=== PATIENT | male | born 1950 | race Caucasian/White ===

== ENCOUNTER 2017-10-26 19:32 | Emergency (ER) | payer MEDICARE ==
[~2017-10-26] VITALS: Ht 205.7 cm; Wt 113.6 kg
[~2017-10-26 19:32] MED LIST: ASPI-621 PO; ATOR20TA9 PO; ATOR80TA PO; CEFD300C37 PO; DIPH25TA65 PO; DOCU100C33 PO; DOXY100C2 PO; FINA5TAB4 PO; IBUP-1223 PO; LEVO100T PO; MAGN400T26 PO; MECL-85 PO; METO-95; METO200T47 PO; METO25TA91 PO; NITR0.4T28 SL; SCOP1PAT11 TD; TAMS0.4C2 PO; TICA90TA PO; VALP250C59 PO
[2017-10-26 21:01] VITALS: BP 130/77
[2017-10-26 21:10] LABS: BASOPHILS # (AUTO) 0.08 x10^3/uL (0-0.1); BASOPHILS % (AUTO) 1 % (0-1); EOSINOPHILS # (AUTO) 0.36 x10^3/uL (0-0.4); EOSINOPHILS % (AUTO) 3 % (1-7); LYMPHOCYTES # (AUTO) 1.79 x10^3/uL (1-3.4); LYMPHOCYTES % (AUTO) 15 % (22-44); MD SCAN; MEAN CORPUSCULAR HEMOGLOBIN 24.5 pg (27.5-34.5); MEAN CORPUSCULAR HGB CONC 30.4 g/dL (33.2-36.2); MEAN CORPUSCULAR VOLUME 80.5 fL (81-97); MONOCYTES # (AUTO) 0.69 x10^3/uL (0.2-0.8); MONOCYTES % (AUTO) 6 % (2-9); NEUTROPHILS # (AUTO) 8.91 x10^3/uL (1.8-6.8); NEUTROPHILS % (AUTO) 75 % (42-75); PLATELET COUNT 671 x10^3/uL (130-400); RED BLOOD COUNT 7.38 x10^6/uL (4.38-5.82); RED CELL DISTRIBUTION WIDTH 17.6 % (9.4-14.8)
== END 2017-10-26 21:29 | disposition home or self-care (01) ==
LOC: ED 20:39
DX: I10 Essential (primary) hypertension (principal); I25.2 Old myocardial infarction; Z86.73 Personal history of transient ischemic attack (TIA), and cerebral infarction without residual deficits; K21.9 Gastro-esophageal reflux disease without esophagitis
CPT/HCPCS: 36415; 80047; 84484; 85025; 93005; 99285

== ENCOUNTER 2018-09-22 22:40 | Inpatient (IN) | payer MEDICARE ==
[~2018-09-22] VITALS: Ht 205.7 cm; Wt 113.9 kg
[~2018-09-22 22:40] MED LIST changes: -ASPI-621 PO; +ASPI81TA45 PO; +ATOR20TA37 PO; -ATOR20TA9 PO
[2018-09-22] MEDS ORDERED: SODIUM CHLORIDE FLUSH 10ML SYR IVF ONE (23:30)
[2018-09-23 00:10] LABS: ALANINE AMINOTRANSFERASE 15 U/L (12-78); ALBUMIN 3.7 g/dL (3.4-5.0); ANION GAP 9 mmol/L (5-15); CALCIUM 8.6 mg/dL (8.5-10.1); CHLORIDE 99 mmol/L (98-107)
[2018-09-23 00:14] LABS: ALKALINE PHOSPHATASE 59 U/L (45-117)
--- NOTE | 2018-09-23 00:18 | NUR ---
UA OBTAINED AND TUBED TO LAB. POC DISCUSSED. PT AND SPOUSE DENY FURTHER NEEDS AT THIS TIME.
[2018-09-23 00:26] LABS: MEAN CORPUSCULAR HEMOGLOBIN 25.2 pg (27.5-34.5); MEAN CORPUSCULAR HGB CONC 31.2 g/dL (33.2-36.2); MEAN CORPUSCULAR VOLUME 80.7 fL (81-97); MEAN PLATELET VOLUME 7.4 fL (7.4-10.4); PLATELET COUNT 669 x10^3/uL (130-400); RED BLOOD COUNT 7.13 x10^6/uL (4.38-5.82); RED CELL DISTRIBUTION WIDTH 16.1 % (9.4-14.8)
[2018-09-23] MEDS ORDERED: ASPIRIN 81 MG TABLET CHEW ONE (00:51)
[2018-09-23] MEDS ORDERED: FUROSEMIDE 20 MG/2 ML ONE (00:51)
--- NOTE | 2018-09-23 00:55 | NUR ---
PT MEDICATED PER JUL. PT TO RAD NOW
[2018-09-23] MEDS ORDERED: ASPIRIN 81 MG TABLET CHEW PO ONE (01:00)
[2018-09-23] MEDS ORDERED: FUROSEMIDE 20 MG/2 ML IV ONE (01:00)
[2018-09-23 01:05] LABS: MD YES
--- NOTE | 2018-09-23 01:07 | NUR ---
AWAITING HEPARIN VERIFICATION FROM PHARM PRIOR TO STARTING HEPARIN
[2018-09-23 01:09] LABS: BAND#(MANUAL) 0.16 x10^3/uL; BANDS%(MANUAL) 1 % (0-7); EOS#(MANUAL) 0.31 x10^3/uL (0.0-0.4); EOS% (MANUAL) 2 % (1-7); LYMPHS% (MANUAL) 7 % (22-44); MONOS#(MANUAL) 1.88 x10^3/uL (0.3-2.7); MONOS% (MANUAL) 12 % (2-9); REACTIVE LYMPHS # (MANUAL) 0.31 x10^3/uL (0-0); REACTIVE LYMPHS % (MANUAL) 2 % (0-0); SEG#(MANUAL) 11.93 x10^3/uL (1.8-6.8); SEGS% (MANUAL) 76 % (42-75)
[2018-09-23 01:10] LABS: POLYCHROMASIA 1+
[2018-09-23] MEDS ORDERED: HEPARIN 5,000 UNITS/ML, 1ML ONE (01:10)
[2018-09-23] MEDS ORDERED: HEPARIN 25,000 UNITS/500ML PMX 500 ML ONE (01:10)
[2018-09-23 01:11] LABS: <PLATELET ESTIMATE> INCREASED; <PLT MORPHOLOGY> NORMAL PLT MORPH; OVALOCYTES 1+; TOXIC GRAN 1+
[2018-09-23 01:18] LABS: MICROSCOPIC AUTO
[2018-09-23 01:20] LABS: INTERNATIONAL NORMALIZED RATIO 1.08 (0.93-1.1)
[2018-09-23 01:21] LABS: PROTHROMBIN TIME 11.3 Seconds (9.6-11.5)
[2018-09-23 01:24] LABS: CULTURE INDICATED? YES
[2018-09-23] MEDS ORDERED: HEPARIN 25,000 UNITS/500ML PMX 500 ML IV PRN ×2 (01:30→07:30)
[2018-09-23] MEDS ORDERED: CEFDINIR 300 MG CAPSULE PO SCH (01:30)
[2018-09-23] MEDS ORDERED: DOCUSATE 100 MG CAPSULE PO SCH (01:30)
[2018-09-23] MEDS ORDERED: HEPARIN 5,000 UNITS/ML, 1ML IV PRN ×2 (01:30→07:30)
[2018-09-23] MEDS ORDERED: HEPARIN 5,000 UNITS/ML, 1ML IV ONE (01:30)
[2018-09-23 02:36] VITALS: BP 131/84
[2018-09-23] MEDS ORDERED: SODIUM CHLORIDE 0.9% 1,000 ML IV SCH ×2 (04:19→09:01)
[2018-09-23] MEDS ORDERED: BISACODYL 10 MG SUPP PR PRN (04:30)
[2018-09-23] MEDS ORDERED: ONDANSETRON 2MG/ML, 2ML IVPush PRN (04:30)
[2018-09-23] MEDS ORDERED: PROMETHAZINE 25 MG/ML, 1ML IM PRN (04:30)
[2018-09-23] MEDS ORDERED: ONDANSETRON ODT 4 MG PO PRN (04:30)
[2018-09-23] MEDS ORDERED: DOCUSATE 100 MG CAPSULE PO PRN (04:30)
[2018-09-23] MEDS ORDERED: NITROGLYCERIN 0.4 MG BOTTLE (25 TABS) SL PRN (04:30)
[2018-09-23] MEDS ORDERED: morphine SULFATE 10 MG/ML, 1ML IVPush PRN (04:30)
[2018-09-23] MEDS ORDERED: POLYETHYLENE GLYCOL 17 GM PACKET PO PRN (04:30)
[2018-09-23] MEDS ORDERED: ACETAMINOPHEN 325 MG TABLET PO PRN (04:30)
[2018-09-23] MEDS ORDERED: OXYcodone IR 5MG TABLET PO PRN (04:30)
[2018-09-23] MEDS ORDERED: LABETALOL 5MG/ML, 20ML IVPush PRN (04:30)
[2018-09-23] MEDS ORDERED: hydrALAzine 20 MG/ML, 1ML IVPush PRN (04:30)
[2018-09-23] MEDS: ASPIRIN 325 MG TABLET EC PO SCH (05:52)
[2018-09-23 07:21] LABS: FREE T4 (FREE THYROXINE) 1.28 ng/dL (0.76-1.46)
[2018-09-23 07:22] LABS: HEMOGLOBIN A1C 5.2 % (4.2-6.3)
[2018-09-23 07:30] VITALS: BP 122/80
[2018-09-23] MEDS: VALPROIC ACID 250 MG CAPSULE PO SCH (08:47)
[2018-09-23] MEDS: METOPROLOL SUCCINATE 50 MG TAB.ER.24H PO SCH (08:47)
[2018-09-23] MEDS ORDERED: methylPREDNISolone SOD SUCC 125 MG/2 ML IVPush ONE (09:30)
[2018-09-23] MEDS ORDERED: DIPHENHYDRAMINE 50 MG/ML, 1ML IVPush ONE (09:30)
[2018-09-23] MEDS ORDERED: MIDAZOLAM 1 MG/ML, 5ML ONE (13:21)
[2018-09-23] MEDS ORDERED: FENTANYL PF 100 MCG/2ML ONE (13:22)
[2018-09-23] MEDS ORDERED: SENNOSIDES 8.8 MG/5 ML ORAL SOL PO PRN (13:30)
[2018-09-23 14:36] VITALS: BP 111/70
[2018-09-23 18:50] VITALS: BP 120/68
[2018-09-23] MEDS: ATORVASTATIN 20 MG TABLET PO SCH (22:09)
[2018-09-23] MEDS ORDERED: DIPHENHYDRAMINE 25 MG CAPSULE PO PRN (22:30)
[2018-09-24 00:51] VITALS: BP 109/67
[2018-09-24] MEDS: ASPIRIN 325 MG TABLET EC PO SCH (05:40)
[2018-09-24 06:13] LABS: MEAN CORPUSCULAR HEMOGLOBIN 25.2 pg (27.5-34.5); MEAN CORPUSCULAR HGB CONC 30.9 g/dL (33.2-36.2); MEAN CORPUSCULAR VOLUME 81.3 fL (81-97); MEAN PLATELET VOLUME 7.9 fL (7.4-10.4); PLATELET COUNT 692 x10^3/uL (130-400)
[2018-09-24 06:22] LABS: ALBUMIN 3.5 g/dL (3.4-5.0); ANION GAP 13 mmol/L (5-15); CALCIUM 8.5 mg/dL (8.5-10.1); CHLORIDE 100 mmol/L (98-107)
[2018-09-24 06:26] LABS: ALANINE AMINOTRANSFERASE 15 U/L (12-78); ALKALINE PHOSPHATASE 65 U/L (45-117); BILIRUBIN,TOTAL 1.7 mg/dL (0.2-1.0); CHOL/HDL RATIO 2.1; CHOLESTEROL, TOTAL 108 mg/dL (140-239); CREATININE 1.28 mg/dL (0.7-1.3); HDL CHOL % 47 % (26-37); HDL CHOLESTEROL (DIRECT) 51 mg/dL (40-60); LDL CHOLESTEROL,CALCULATED 47 mg/dL (54-169); LDL/HDL RATIO 0.9 (0.5-3.0); TOTAL PROTEIN 6.8 g/dL (6.4-8.2); TRIGLYCERIDES 49 mg/dL (50-200); VLDL CHOLESTEROL 10 mg/dL (0-25)
[2018-09-24 06:38] LABS: MD YES
[2018-09-24 06:39] LABS: BAND#(MANUAL) 2.17 x10^3/uL; BANDS%(MANUAL) 8 % (0-7); LYMPH#(MANUAL) 0.54 x10^3/uL (1-3.4); LYMPHS% (MANUAL) 2 % (22-44); MONOS#(MANUAL) 1.36 x10^3/uL (0.3-2.7); MONOS% (MANUAL) 5 % (2-9); SEG#(MANUAL) 23.04 x10^3/uL (1.8-6.8); SEGS% (MANUAL) 85 % (42-75)
[2018-09-24 06:40] LABS: ANISOCYTOSIS 1+; OVALOCYTES 1+; TOXIC GRAN 1+
[2018-09-24 06:41] LABS: <PLATELET ESTIMATE> INCREASED; <PLT MORPHOLOGY> NORMAL PLT MORPH
[2018-09-24 08:17] VITALS: BP 117/67
[2018-09-24] MEDS: FUROSEMIDE 20 MG TABLET PO SCH (09:00)
[2018-09-24] MEDS: METOPROLOL SUCCINATE 50 MG TAB.ER.24H PO SCH (09:00)
[2018-09-24] MEDS: VALPROIC ACID 250 MG CAPSULE PO SCH (09:00)
[2018-09-24] MEDS ORDERED: MAGNESIUM CITRATE 300ML ORAL SOL PO ONE (10:00)
[2018-09-24] MEDS ORDERED: ACETAMINOPHEN 325 MG TABLET PO PRN (10:00)
[2018-09-24 13:41] VITALS: BP 102/68
[2018-09-24] MEDS: HEPARIN 5,000 UNITS/ML, 1ML SQ SCH ×2 (14:24→21:57)
[2018-09-24] MEDS ORDERED: DIPHENHYDRAMINE 25 MG CAPSULE PO PRN (17:00)
[2018-09-24 20:13] VITALS: BP 126/81
[2018-09-24] MEDS: ATORVASTATIN 20 MG TABLET PO SCH (21:57)
[2018-09-25 03:02] VITALS: BP 102/63
[2018-09-25 05:47] LABS: % IRON SATURATION 9 % (20-55); IRON LEVEL 41 mcg/dL (65-175); TOTAL IRON BINDING CAPACITY 437 mcg/dL (250-450)
[2018-09-25 05:51] LABS: MEAN CORPUSCULAR HEMOGLOBIN 25.3 pg (27.5-34.5); MEAN CORPUSCULAR HGB CONC 31.1 g/dL (33.2-36.2); MEAN CORPUSCULAR VOLUME 81.3 fL (81-97); MEAN PLATELET VOLUME 7.6 fL (7.4-10.4); PLATELET COUNT 686 x10^3/uL (130-400); RED BLOOD COUNT 7.18 x10^6/uL (4.38-5.82); RED CELL DISTRIBUTION WIDTH 16.4 % (9.4-14.8)
[2018-09-25 06:13] LABS: MD YES
[2018-09-25 06:17] LABS: BAND#(MANUAL) 0.76 x10^3/uL; BANDS%(MANUAL) 4 % (0-7); EOS#(MANUAL) 0.76 x10^3/uL (0.0-0.4); EOS% (MANUAL) 4 % (1-7); LYMPH#(MANUAL) 0.76 x10^3/uL (1-3.4); LYMPHS% (MANUAL) 4 % (22-44); MONOS#(MANUAL) 0.76 x10^3/uL (0.3-2.7); MONOS% (MANUAL) 4 % (2-9); SEG#(MANUAL) 15.88 x10^3/uL (1.8-6.8); SEGS% (MANUAL) 84 % (42-75)
[2018-09-25 06:18] LABS: ANISOCYTOSIS 1+; OVALOCYTES 1+; TOXIC GRAN 1+
[2018-09-25 06:19] LABS: <PLATELET ESTIMATE> INCREASED; <PLT MORPHOLOGY> NORMAL PLT MORPH
[2018-09-25] MEDS: ASPIRIN 325 MG TABLET EC PO SCH (06:26)
[2018-09-25] MEDS: HEPARIN 5,000 UNITS/ML, 1ML SQ SCH ×3 (06:26→21:03)
[2018-09-25 08:00] VITALS: BP 100/54
[2018-09-25] MEDS: VALPROIC ACID 250 MG CAPSULE PO SCH (08:26)
[2018-09-25] MEDS: METOPROLOL SUCCINATE 50 MG TAB.ER.24H PO SCH (08:27)
[2018-09-25] MEDS: FUROSEMIDE 20 MG TABLET PO SCH (08:27)
[2018-09-25] MEDS ORDERED: BISACODYL 10 MG SUPP PR SCH (09:00)
[2018-09-25] MEDS ORDERED: DIPHENHYDRAMINE 25 MG CAPSULE PO PRN (11:30)
[2018-09-25] MEDS: SODIUM CHLORIDE 0.9% 1,000 ML IV SCH (11:32)
[2018-09-25 14:00] VITALS: BP 112/71
[2018-09-25 20:26] VITALS: BP 115/68
[2018-09-25] MEDS ORDERED: SENNOSIDES 8.8 MG/5 ML ORAL SOL PO SCH (21:00)
[2018-09-25] MEDS: ATORVASTATIN 20 MG TABLET PO SCH (21:04)
[2018-09-26 00:42] VITALS: BP 170/81
[2018-09-26 03:10] VITALS: BP 112/70
[2018-09-26] MEDS: SODIUM CHLORIDE 0.9% 1,000 ML IV SCH (03:20)
[2018-09-26 05:08] LABS: MEAN CORPUSCULAR HEMOGLOBIN 25.4 pg (27.5-34.5); MEAN CORPUSCULAR HGB CONC 30.2 g/dL (33.2-36.2); MEAN CORPUSCULAR VOLUME 84.3 fL (81-97); MEAN PLATELET VOLUME 7.7 fL (7.4-10.4); PLATELET COUNT 662 x10^3/uL (130-400); RED BLOOD COUNT 6.93 x10^6/uL (4.38-5.82); RED CELL DISTRIBUTION WIDTH 16.3 % (9.4-14.8)
[2018-09-26 05:11] LABS: ANION GAP 9 mmol/L (5-15); CALCIUM 8.5 mg/dL (8.5-10.1); CHLORIDE 103 mmol/L (98-107); CREATININE 1.26 mg/dL (0.7-1.3)
[2018-09-26 05:36] LABS: NEUTROPHILS % (AUTO) 83 % (42-75)
[2018-09-26 05:38] LABS: MD SCAN
[2018-09-26] MEDS: ASPIRIN 325 MG TABLET EC PO SCH (05:44)
[2018-09-26] MEDS: HEPARIN 5,000 UNITS/ML, 1ML SQ SCH (05:44)
[2018-09-26 07:22] LABS: BASOPHILS # (AUTO) 0.09 x10^3/uL (0-0.1); BASOPHILS % (AUTO) 1 % (0-1); EOSINOPHILS # (AUTO) 0.78 x10^3/uL (0-0.4); EOSINOPHILS % (AUTO) 5 % (1-7); LYMPHOCYTES # (AUTO) 0.72 x10^3/uL (1-3.4); LYMPHOCYTES % (AUTO) 5 % (22-44); MONOCYTES # (AUTO) 1.09 x10^3/uL (0.2-0.8); MONOCYTES % (AUTO) 7 % (2-9); NEUTROPHILS # (AUTO) 12.73 x10^3/uL (1.8-6.8)
[2018-09-26] MEDS: VALPROIC ACID 250 MG CAPSULE PO SCH (07:51)
[2018-09-26] MEDS: METOPROLOL SUCCINATE 50 MG TAB.ER.24H PO SCH (07:52)
[2018-09-26 08:56] VITALS: BP 121/78
[2018-09-26] MEDS ORDERED: HYDR25TA11 PO (09:33)
[2018-09-26] MEDS ORDERED: ASPI-650 PO (09:33)
[2018-09-26] MEDS ORDERED: ATOR20TA37 PO (09:33)
[2018-09-26] MEDS ORDERED: FERR-51 PO (09:36)
== END 2018-09-26 11:49 | disposition home or self-care (01) | DRG 280 ==
LOC: ED 22:45 → EDIP 22:51 → 5SO 09-23 02:15 → DCLOUNGE 09-26 11:30
PROVIDERS: ADMIT Internal Medicine; ATTEND Internal Medicine
PROC: 4A023N7 Measurement of Cardiac Sampling and Pressure, Left Heart, Percutaneous Approach (ICD-10-PCS; principal; 2018-09-23)
PROC: B2111ZZ Fluoroscopy of Multiple Coronary Arteries using Low Osmolar Contrast (ICD-10-PCS; 2018-09-23)
PROC: B2151ZZ Fluoroscopy of Left Heart using Low Osmolar Contrast (ICD-10-PCS; 2018-09-23)
DX: I21.4 Non-ST elevation (NSTEMI) myocardial infarction (principal); I50.33 Acute on chronic diastolic (congestive) heart failure; E87.1 Hypo-osmolality and hyponatremia; I69.351 Hemiplegia and hemiparesis following cerebral infarction affecting right dominant side; N39.0 Urinary tract infection, site not specified; I25.2 Old myocardial infarction; E03.9 Hypothyroidism, unspecified; D75.1 Secondary polycythemia; E78.5 Hyperlipidemia, unspecified; I11.0 Hypertensive heart disease with heart failure; I25.10 Atherosclerotic heart disease of native coronary artery without angina pectoris; T50.8X5A Adverse effect of diagnostic agents, initial encounter; M47.816 Spondylosis without myelopathy or radiculopathy, lumbar region; K59.00 Constipation, unspecified; L29.9 Pruritus, unspecified; K21.9 Gastro-esophageal reflux disease without esophagitis; Z87.891 Personal history of nicotine dependence; I69.349 Monoplegia of lower limb following cerebral infarction affecting unspecified side; Z95.5 Presence of coronary angioplasty implant and graft; Z91.041 Radiographic dye allergy status
CPT/HCPCS: 36415; 71045; 74021; 74176; 80048; 80053; 80061; 81001; 83036; 83540; 83550; 83735; 83880; 84439; 84443; 84484; 85025; 85520; 85610; 85730; 87086; 93005; 93306; 93458; 96365; 96375; 99156; C1760; C1769; C1894; G0378; J1644; J2250; J3010; J1200; J1940; J2930; J7030; Q0163; Q0177; Q9967

== ENCOUNTER 2019-03-24 15:35 | Observation (INO) | payer MEDICARE ==
[~2019-03-24] VITALS: Ht 203.2 cm; Wt 122.0 kg
[~2019-03-24 15:35] MED LIST changes: +ASPI-650 PO; +FERR-51 PO; +HYDR-826 PO
--- NOTE | 2019-03-24 16:23 | NUR ---
MD EXAMING PT
[2019-03-24] MEDS ORDERED: MECLIZINE CHEWABLE 25 MG TAB PO ONE (16:30)
[2019-03-24] MEDS ORDERED: MECLIZINE CHEWABLE 25 MG TAB ONE (16:34)
[2019-03-24 16:56] LABS: CULTURE INDICATED? YES; MICROSCOPIC INDICATED
--- NOTE | 2019-03-24 17:00 | NUR ---
CONTINUES TO FEEL DIZZY. NO KNEE PAIN WHILE AT REST IN [facility].
[2019-03-24 17:12] LABS: MEAN CORPUSCULAR HEMOGLOBIN 24.8 pg (27.5-34.5); MEAN CORPUSCULAR HGB CONC 30.3 g/dL (33.2-36.2); MEAN CORPUSCULAR VOLUME 81.9 fL (81-97); MEAN PLATELET VOLUME 7.8 fL (7.4-10.4); PLATELET COUNT 613 x10^3/uL (130-400); RED BLOOD COUNT 7.28 x10^6/uL (4.38-5.82); RED CELL DISTRIBUTION WIDTH 16.9 % (9.4-14.8)
[2019-03-24 17:13] LABS: ALBUMIN 3.7 g/dL (3.4-5.0); ANION GAP 6 mmol/L (5-15); CALCIUM 8.4 mg/dL (8.5-10.1); CHLORIDE 104 mmol/L (98-107)
[2019-03-24 17:18] LABS: TROPONIN I 0.149 ng/mL (0.000-0.045)
[2019-03-24 17:21] LABS: MD YES
[2019-03-24 17:23] LABS: BAND#(MANUAL) 0.82 x10^3/uL; BANDS%(MANUAL) 6 % (0-7); EOS#(MANUAL) 0.27 x10^3/uL (0.0-0.4); EOS% (MANUAL) 2 % (1-7); LYMPH#(MANUAL) 0.96 x10^3/uL (1-3.4); LYMPHS% (MANUAL) 7 % (22-44); MONOS#(MANUAL) 0.55 x10^3/uL (0.3-2.7); MONOS% (MANUAL) 4 % (2-9); SEGS% (MANUAL) 81 % (42-75)
[2019-03-24 17:24] LABS: <PLATELET ESTIMATE> INCREASED; ANISOCYTOSIS 1+; GIANT PLATELETS 1+; LARGE PLATELETS 1+; OVALOCYTES 1+; TOXIC GRAN 1+
--- NOTE | 2019-03-24 18:31 | NUR ---
REPORT TO BRITTNEY GUEVARA PT TO BE TRANSPORTED TO FLOOR.
[2019-03-24] MEDS ORDERED: ASPIRIN 325 MG TABLET PO ONE (19:03)
[2019-03-24] MEDS ORDERED: ONDANSETRON ODT 4 MG PO PRN (20:00)
[2019-03-24] MEDS ORDERED: POLYETHYLENE GLYCOL 17 GM PACKET PO PRN (20:00)
[2019-03-24] MEDS ORDERED: ACETAMINOPHEN 325 MG TABLET PO PRN (20:00)
[2019-03-24] MEDS ORDERED: ONDANSETRON 2MG/ML, 2ML IVPush PRN (20:00)
[2019-03-24] MEDS ORDERED: BISACODYL 10 MG SUPP PR PRN (20:00)
[2019-03-24] MEDS ORDERED: NITROGLYCERIN 0.4 MG BOTTLE (25 TABS) SL PRN (20:00)
[2019-03-24] MEDS ORDERED: hydrALAzine 20 MG/ML, 1ML IVPush PRN (20:00)
[2019-03-24] MEDS ORDERED: FERROUS SULFATE 325 MG TABLET PO SCH (20:00)
[2019-03-24] MEDS ORDERED: PROMETHAZINE 25 MG/ML, 1ML IM PRN (20:00)
[2019-03-24] MEDS ORDERED: OXYcodone IR 5MG TABLET PO PRN (20:00)
[2019-03-24] MEDS ORDERED: DOCUSATE 100 MG CAPSULE PO PRN (20:00)
[2019-03-24] MEDS ORDERED: morphine SULFATE 10 MG/ML, 1ML IVPush PRN (20:00)
[2019-03-24 20:19] LABS: FREE T4 (FREE THYROXINE) 1.26 ng/dL (0.76-1.46)
[2019-03-24] MEDS: HEPARIN 5,000 UNITS/ML, 1ML SQ SCH (20:24)
[2019-03-24] MEDS: SODIUM CHLORIDE 0.9% 1,000 ML IV SCH (20:25)
[2019-03-24] MEDS: ATORVASTATIN 40 MG TABLET PO SCH (20:29)
[2019-03-24] MEDS ORDERED: MECLIZINE 25 MG TABLET PO PRN (20:30)
[2019-03-24 20:32] LABS: HEMOGLOBIN A1C 5.3 % (4.2-6.3)
[2019-03-24 21:30] VITALS: BP 137/82
[2019-03-24 21:37] VITALS: BP 129/83
[2019-03-24 21:42] VITALS: BP 162/104
[2019-03-24 23:09] LABS: TROPONIN I 0.136 ng/mL (0.000-0.045)
[2019-03-24] MEDS ORDERED: MAGNESIUM SULFATE PMX 4GM/100M 100 ML IVPB ONE (23:30)
[2019-03-25] VITALS: BP 150/90
[2019-03-25] MEDS ORDERED: TEMAZEPAM 15 MG CAPSULE PO ONE (01:00)
[2019-03-25 01:43] VITALS: BP 129/78
[2019-03-25 02:24] LABS: MEAN CORPUSCULAR HEMOGLOBIN 24.5 pg (27.5-34.5); MEAN CORPUSCULAR VOLUME 82.2 fL (81-97); MEAN PLATELET VOLUME 7.6 fL (7.4-10.4); PLATELET COUNT 630 x10^3/uL (130-400); RED CELL DISTRIBUTION WIDTH 17.4 % (9.4-14.8)
[2019-03-25 02:32] LABS: ALBUMIN 3.5 g/dL (3.4-5.0); ANION GAP 5 mmol/L (5-15); CALCIUM 8.5 mg/dL (8.5-10.1); CHLORIDE 105 mmol/L (98-107)
[2019-03-25 02:35] LABS: ALANINE AMINOTRANSFERASE 15 U/L (12-78); ALKALINE PHOSPHATASE 62 U/L (45-117); BILIRUBIN,TOTAL 1.8 mg/dL (0.2-1.0); CHOL/HDL RATIO 1.8; CHOLESTEROL, TOTAL 99 mg/dL (140-239); CREATININE 1.03 mg/dL (0.7-1.3); HDL CHOL % 55 % (26-37); HDL CHOLESTEROL (DIRECT) 54 mg/dL (40-60); LDL CHOLESTEROL,CALCULATED 34 mg/dL (54-169); LDL/HDL RATIO 0.6 (0.5-3.0); TOTAL PROTEIN 6.6 g/dL (6.4-8.2); TRIGLYCERIDES 54 mg/dL (50-200); VLDL CHOLESTEROL 11 mg/dL (0-25)
[2019-03-25 02:36] LABS: TROPONIN I 0.129 ng/mL (0.000-0.045)
[2019-03-25 02:42] LABS: MD YES
[2019-03-25 02:44] LABS: <PLATELET ESTIMATE> INCREASED; EOS% (MANUAL) 2 % (1-7); LYMPHS% (MANUAL) 8 % (22-44); MONOS% (MANUAL) 2 % (2-9); REACTIVE LYMPHS # (MANUAL) 0.45 x10^3/uL (0-0); REACTIVE LYMPHS % (MANUAL) 3 % (0-0); SEG#(MANUAL) 12.75 x10^3/uL (1.8-6.8); SEGS% (MANUAL) 85 % (42-75); TOXIC GRAN 1+
[2019-03-25 02:46] LABS: LARGE PLATELETS 1+
[2019-03-25 02:48] LABS: ANISOCYTOSIS 1+
[2019-03-25 02:49] LABS: OVALOCYTES 1+
[2019-03-25 02:50] LABS: MEAN CORPUSCULAR HGB CONC 29.8 g/dL (33.2-36.2)
[2019-03-25] MEDS: HEPARIN 5,000 UNITS/ML, 1ML SQ SCH ×3 (05:17→20:14)
[2019-03-25] MEDS: ASPIRIN 325 MG TABLET EC PO SCH (05:17)
[2019-03-25 09:51] VITALS: BP_SYST 136; BP_SYST 137; BP_SYST 146; BP_DIAS 87; BP_DIAS 90; BP_DIAS 92
[2019-03-25] MEDS: METOPROLOL SUCCINATE 50 MG TAB.ER.24H PO SCH (10:02)
[2019-03-25] MEDS: VALPROIC ACID 250 MG CAPSULE PO SCH (10:02)
[2019-03-25] MEDS ORDERED: CEFTRIAXONE PMX 1GM/50ML 50 ML IV SCH (11:30)
[2019-03-25] MEDS: SODIUM CHLORIDE 0.9% 1,000 ML IV SCH (13:22)
[2019-03-25 15:00] VITALS: BP 127/81
[2019-03-25 18:48] VITALS: BP 118/71
[2019-03-25] MEDS: ATORVASTATIN 40 MG TABLET PO SCH (20:14)
[2019-03-26 00:26] VITALS: BP 114/81
[2019-03-26 00:27] VITALS: BP 128/90
[2019-03-26 00:28] VITALS: BP 143/93
[2019-03-26 04:45] LABS: ANION GAP 7 mmol/L (5-15); CALCIUM 8.2 mg/dL (8.5-10.1); CHLORIDE 105 mmol/L (98-107); CREATININE 1.09 mg/dL (0.7-1.3); MEAN CORPUSCULAR HEMOGLOBIN 24.5 pg (27.5-34.5); MEAN CORPUSCULAR VOLUME 82.6 fL (81-97); MEAN PLATELET VOLUME 7.7 fL (7.4-10.4); PLATELET COUNT 596 x10^3/uL (130-400); RED BLOOD COUNT 7.09 x10^6/uL (4.38-5.82); RED CELL DISTRIBUTION WIDTH 16.9 % (9.4-14.8)
[2019-03-26] MEDS: ASPIRIN 325 MG TABLET EC PO SCH (05:06)
[2019-03-26] MEDS: HEPARIN 5,000 UNITS/ML, 1ML SQ SCH (05:06)
[2019-03-26 05:42] LABS: MD YES
[2019-03-26 05:45] LABS: BAND#(MANUAL) 0.26 x10^3/uL; BANDS%(MANUAL) 2 % (0-7); EOS#(MANUAL) 0.39 x10^3/uL (0.0-0.4); EOS% (MANUAL) 3 % (1-7); LYMPH#(MANUAL) 0.39 x10^3/uL (1-3.4); LYMPHS% (MANUAL) 3 % (22-44); MONOS#(MANUAL) 0.65 x10^3/uL (0.3-2.7); MONOS% (MANUAL) 5 % (2-9); REACTIVE LYMPHS # (MANUAL) 0.52 x10^3/uL (0-0); REACTIVE LYMPHS % (MANUAL) 4 % (0-0); SEG#(MANUAL) 10.71 x10^3/uL (1.8-6.8); SEGS% (MANUAL) 83 % (42-75)
[2019-03-26 05:46] LABS: ANISOCYTOSIS 1+
[2019-03-26 05:47] LABS: <PLATELET ESTIMATE> INCREASED; OVALOCYTES 1+; TOXIC GRAN 1+
[2019-03-26 05:48] LABS: GIANT PLATELETS 1+; LARGE PLATELETS 1+; MEAN CORPUSCULAR HGB CONC 29.6 g/dL (33.2-36.2)
[2019-03-26] MEDS: METOPROLOL SUCCINATE 50 MG TAB.ER.24H PO SCH (08:08)
[2019-03-26] MEDS: VALPROIC ACID 250 MG CAPSULE PO SCH (08:08)
[2019-03-26 08:23] VITALS: BP 126/73
[2019-03-26] MEDS ORDERED: CEFD300C37 PO (11:02)
== END 2019-03-26 12:20 | disposition home or self-care (01) ==
LOC: ED 17:50 → EDIP 17:58 → INTOOBSV 17:58 → ED 18:00 → 5SO 19:16 → DCLOUNGE 03-26 12:10
PROVIDERS: ADMIT Internal Medicine; ATTEND Family Medicine
DX: I21.4 Non-ST elevation (NSTEMI) myocardial infarction (principal); I69.351 Hemiplegia and hemiparesis following cerebral infarction affecting right dominant side; R42 Dizziness and giddiness; E03.9 Hypothyroidism, unspecified; I25.10 Atherosclerotic heart disease of native coronary artery without angina pectoris; I10 Essential (primary) hypertension; E78.5 Hyperlipidemia, unspecified; I25.2 Old myocardial infarction; N39.0 Urinary tract infection, site not specified; Z95.5 Presence of coronary angioplasty implant and graft; Z79.899 Other long term (current) drug therapy; M79.605 Pain in left leg
CPT/HCPCS: 0399T; 36415; 70551; 80048; 80053; 80061; 81001; 82040; 83036; 83735; 84439; 84443; 84484; 85025; 87077; 87086; 87186; 93005; 93306; 93880; 93971; 96361; 96365; 96366; 96367; 96372; 97162; 97166; 99285; G0378; J0696; J1644; J3475; J7030

== ENCOUNTER 2020-07-12 09:48 | Emergency (ER) | payer MEDICARE ==
[~2020-07-12] VITALS: Ht 200.7 cm; Wt 121.3 kg
[~2020-07-12 09:48] MED LIST changes: -ASPI-650 PO; +ASPI325T20 PO
--- NOTE | 2020-07-12 10:29 | NUR ---
pt changed into gown in [facility]. at for pt history and assessment. pt attached to vs and cardiac monitors. vss at this time. pt educated on er process and poc and verbalizes understanding.
[2020-07-12 10:44] LABS: BASOPHILS % (AUTO) 0 % (0-1); EOSINOPHILS % (AUTO) 3 % (1-7); LYMPHOCYTES % (AUTO) 5 % (22-44); MEAN CORPUSCULAR HEMOGLOBIN 23.8 pg (27.5-34.5); MEAN CORPUSCULAR HGB CONC 30.2 g/dL (33.2-36.2); MEAN PLATELET VOLUME 7.7 fL (7.4-10.4); MONOCYTES % (AUTO) 6 % (2-9); NEUTROPHILS % (AUTO) 86 % (42-75); PLATELET COUNT 711 x10^3/uL (130-400); RED BLOOD COUNT 6.92 x10^6/uL (4.38-5.82); RED CELL DISTRIBUTION WIDTH 17.8 % (9.4-14.8)
[2020-07-12 10:54] LABS: ALANINE AMINOTRANSFERASE 18 U/L (12-78); ALBUMIN 3.7 g/dL (3.4-5.0); ANION GAP 4 mmol/L (5-15); CALCIUM 8.9 mg/dL (8.5-10.1); CHLORIDE 108 mmol/L (98-107); CREATININE 1.28 mg/dL (0.7-1.3)
[2020-07-12 10:55] LABS: INTERNATIONAL NORMALIZED RATIO 1.27 (0.93-1.1); PROTHROMBIN TIME 13.5 Seconds (9.6-11.5)
[2020-07-12 10:56] LABS: ALKALINE PHOSPHATASE 63 U/L (45-117); BILIRUBIN,TOTAL 0.6 mg/dL (0.2-1.0); TOTAL PROTEIN 6.6 g/dL (6.4-8.2)
[2020-07-12 11:31] LABS: MD MORPH REVIEW ONLY
[2020-07-12 11:32] LABS: HYPOCHROMIA 1+; OVALOCYTES 1+
[2020-07-12 11:33] LABS: <PLATELET ESTIMATE> INCREASED; GIANT PLATELETS 1+; TOXIC GRAN 1+
--- NOTE | 2020-07-12 12:45 | NUR ---
UA COLLECTED AND SENT TO LAB AT THIS TIME
[2020-07-12 12:58] LABS: MICROSCOPIC AUTO
[2020-07-12] MEDS ORDERED: CEFTRIAXONE 1,000 MG ONE (13:18)
[2020-07-12] MEDS ORDERED: CEFTRIAXONE 1,000 MG IM ONE (13:30)
--- NOTE | 2020-07-12 14:23 | NUR ---
PT D/C WITH D/C SUMMARY AND SCRIPTS. ALL QUESTIONS ANSWERED. PT WHEELED TO LOBBY WITH WHEELCHAIR AND FRIEND TO DRIVE PT HOME. PT VERBALIZES UNDERSTANDING OF NEED FOR ABX USE X 10 DAYS. PT VSS PRIOR TO PT D/C. PT DENIES ANY OTHER NEEDS PERTAINING TO THIS VISIT.
[2020-07-12 14:24] VITALS: BP 130/84
== END 2020-07-12 14:26 | disposition home or self-care (01) ==
LOC: ED 10:14
DX: N30.01 Acute cystitis with hematuria (principal); I10 Essential (primary) hypertension; I25.10 Atherosclerotic heart disease of native coronary artery without angina pectoris; I25.2 Old myocardial infarction; K21.9 Gastro-esophageal reflux disease without esophagitis; Z86.73 Personal history of transient ischemic attack (TIA), and cerebral infarction without residual deficits
CPT/HCPCS: 36415; 71045; 80053; 81001; 85025; 85610; 85730; 87077; 87086; 87186; 99284